=== PATIENT | male | born 1980 ===

== ENCOUNTER 2017-02-10 09:20 | Day surgery (SDC) | payer MEDICARE, MEDICAID ==
[2012-11-02 13:36] VITALS: BMI 24.2
[2017-02-10 10:18] LABS: BASO # 0.02 K/mm3 (0.0-2.0); BASO % 0.3 % (0.0-3.0); EOS % 0.6 % (1.5-5.0); GRAN # 4.14 (1.4-6.5); GRAN % 61.1 % (50.0-68.0); HEMATOCRIT 45.1 % (42.0-52.0); LYMPH # 2.1 (1.2-3.4); LYMPH % 31.1 % (22.0-35.0); MEAN CELL VOLUME 80.2 fl (80.0-105.0); MEAN CORPUSCULAR HEMOGLOBIN 26.9 pg (25.0-35.0); MEAN CORPUSCULAR HGB CONC 33.5 g/dl (31.0-37.0); MEAN PLATELET VOLUME 9.1 fl (7.0-11.0); MONO # 0.5 (0.1-0.6); MONO % 6.9 % (1.0-6.0); RED CELL DISTRIBUTION WIDTH 13.5 % (11.5-14.5); WHITE BLOOD COUNT 6.8 10^3/ul (4.5-11.0)
[2017-02-10 10:26] LABS: BLOOD UREA NITROGEN 14 mg/dL (7-21); CALCIUM 9.5 mg/dL (8.4-10.5); CARBON DIOXIDE 25 mmol/L (21-33); CHLORIDE 102 mmol/L (98-107); GFR AFRICAN-AMERICAN > 60; GLUCOSE,RANDOM 99 mg/dL (70-110); POTASSIUM 4.1 mmol/L (3.6-5.0); SODIUM 139 mmol/L (132-148)
[2017-02-10 10:33] VITALS: RESP 18; O2SAT 98
[2017-02-10 10:39] LABS: INR 1.15 (0.93-1.08); PARTIAL THROMBOPLASTIN TIME 33.1 Seconds (25.1-36.5)
[2017-02-10] MEDS ORDERED: Lidocaine 2% Inj (20ml) ONE (10:47)
[2017-02-10 12:47] VITALS: PULSE 64; TEMP 98.2
[2017-02-10 13:49] VITALS: BP 126/84
--- NOTE | 2017-02-10 19:45 | VASCULAR ---
PROCEDURE: Ultrasound and fluoroscopically placed left upper extremity PICC line. HISTORY: Amyotrophic lateral sclerosis. Needs IV access for treatment. Jeffery PICC line. PHYSICIAN(S): Bryant Yi MD. TECHNIQUE: The relative risks and indications of the procedure were explained to the patient and consent obtained. The patient was placed supine on the arteriogram table and the left arm prepped and draped in the usual sterile fashion. A tourniquet was applied to the left axilla. 1% Xylocaine was used to anesthetize the skin and soft tissues at the puncture site above the elbow. The left brachial vein was punctured under direct ultrasound guidance with a micropuncture set. A 0.018 guidewire was advanced centrally and used to measure the length to the SVC/RA junction. A 5 Ukrainian single-lumen PICC line 41 cm long was advanced to the SVC/RA junction. The catheter was flushed and secured. The patient tolerated the procedure well. IMPRESSION: 1. Ultrasound and fluoroscopically placed left upper extremity PICC line. A 5 [place] single-lumen PICC line 41 cm long was advanced to the SVC/RA junction.
== END 2017-02-10 13:40 | disposition home or self-care (01) ==
LOC: OPSURG 09:20
PROVIDERS: ATTEND Radiology Vascular & Interventional Radiology
DX: G12.21 Amyotrophic lateral sclerosis (principal)
CPT/HCPCS: 36415; 36569; 76937; 77001; 80048; 85025; 85610; 85730; C1751; J1644

== ENCOUNTER → 2017-04-08 | Day surgery (SDC) | payer MEDICARE, MEDICAID ==
[~2017-04-08] MED LIST: HEPARIN SODIUM/NS 1,000 ML IV ONE; Lidocaine 2% Inj (20ml) ONE
[2017-04-08 10:40] VITALS: PULSE 93; O2SAT 98
[2017-04-08 11:47] VITALS: BMI 25.0
[2017-04-08 12:07] VITALS: BP 127/89; RESP 18; TEMP 98.5
--- NOTE | 2017-04-08 14:41 | VASCULAR ---
PROCEDURE: Ultrasound and fluoroscopically placed right upper extremity PICC line. HISTORY: ALS. Needs PICC line for long-term infusion. PHYSICIAN(S): Bryant Yi MD. TECHNIQUE: The relative risks and indications of the procedure were explained to the patient and his and consent obtained. The patient was placed supine on the arteriogram table and the right arm prepped and draped in the usual sterile fashion. A tourniquet was applied to the right axilla. 1% Xylocaine was used to anesthetize the skin and soft tissues at the puncture site above the elbow. The right brachial vein was punctured under direct ultrasound guidance with a micropuncture set. A 0.018 guidewire was advanced centrally and used to measure the length to the SVC/RA junction. A 5 Bulgarian single-lumen PICC line 40 cm long was advanced to the SVC/RA junction. The catheter was flushed and secured. The patient tolerated the procedure well. IMPRESSION: 1. Ultrasound and fluoroscopically placed right upper extremity PICC line. A 5 Bulgarian single-lumen PICC line 40 cm long was advanced to the SVC/RA junction. 2. The patient's left upper extremity PICC line was removed
== END | disposition home or self-care (01) ==
LOC: OPSURG 10:09
PROVIDERS: ATTEND Radiology Vascular & Interventional Radiology
DX: G12.21 Amyotrophic lateral sclerosis (principal)

== ENCOUNTER 2017-06-10 09:57 | Day surgery (SDC) | payer MEDICARE, MEDICAID ==
[2017-06-09 08:34] VITALS: BMI 24.2
[2017-06-10] MEDS ORDERED: Midazolam 2 MG/2 ML VIAL ONE ×2 (10:02→14:18)
[2017-06-10] MEDS ORDERED: HEPARIN SODIUM/NS 1,000 ML IV ONE (10:02)
[2017-06-10] MEDS ORDERED: Lidocaine 2% Inj (20ml) ONE ×2 (10:02→14:13)
[2017-06-10 10:33] LABS: BASO # 0.03 K/mm3 (0.0-2.0); BASO % 0.5 % (0.0-3.0); EOS # 0.1 (0.0-0.7); EOS % 1.4 % (1.5-5.0); GRAN % 60.3 % (50.0-68.0); HEMOGLOBIN 15.2 g/dL (14.0-18.0); LYMPH % 29.5 % (22.0-35.0); MEAN CELL VOLUME 81.4 fl (80.0-105.0); MEAN CORPUSCULAR HEMOGLOBIN 26.9 pg (25.0-35.0); MEAN PLATELET VOLUME 9.1 fl (7.0-11.0); MONO # 0.6 (0.1-0.6); MONO % 8.3 % (1.0-6.0); RBC 5.66 10^6/uL (3.5-6.1); RED CELL DISTRIBUTION WIDTH 13.3 % (11.5-14.5); WHITE BLOOD COUNT 6.6 10^3/ul (4.5-11.0)
[2017-06-10 10:35] VITALS: TEMP 98.2
[2017-06-10 10:43] LABS: BLOOD UREA NITROGEN 9 mg/dL (7-21); GFR AFRICAN-AMERICAN > 60; GFR NON-AFRICAN AMERICAN > 60
[2017-06-10 10:59] LABS: INR 1.1 (0.93-1.08); PARTIAL THROMBOPLASTIN TIME 33.8 Seconds (25.1-36.5); PROTHROMBIN TIME 12.7 SECONDS (9.4-12.5)
[2017-06-10] MEDS ORDERED: Oxycodone/Acetaminophen 5/325 mg Tab PO PRN (15:08)
[2017-06-10] MEDS ORDERED: Sodium Chloride 0.45% 1,000 ML IV SCH (15:15)
[2017-06-10 15:52] VITALS: BP 132/74; PULSE 90; RESP 18; O2SAT 96
--- NOTE | 2017-06-13 14:33 | VASCULAR ---
PROCEDURE: Ultrasound and fluoroscopic l right internal jugular venous access port. CLINICAL HISTORY: Amyotrophic lateral sclerosis.Venous port for chronic infusion therapy. PHYSICIAN(S): Bryant Yi M.D. TECHNIQUE: The relative risks and indications of the procedure were explained to the patient and consent obtained. The patient was placed supine on the arteriogram table and the right neck and chest prepped and draped in the usual sterile fashion. Conscious sedation monitoring was provided throughout the procedure by a nurse. Antibiotics were given prior to the procedure. Under direct ultrasound guidance, the right internal jugular vein was punctured with a micro-puncture set. A 0.035 angled Glidewire was advanced into the IVC. A 4 cm incision was made below the right clavicle and the pocket blunted dissected. A 8 [place]ym[place] single-lumen catheter, 19 cm long, was advanced to the SVC/RA junction. The catheter was trimmed and attached to the port. The port aspirates and injects easily. The port was placed in the pocket and closed in 2 layers. The patient tolerated the procedure well. IMPRESSION: Ultrasound and fluoroscopically placed right internal jugular venous access port.
== END 2017-06-10 16:39 | disposition home or self-care (01) ==
LOC: SDSVAS 09:57
PROVIDERS: ATTEND Radiology Vascular & Interventional Radiology
DX: Z45.2 Encounter for adjustment and management of vascular access device (principal); G12.21 Amyotrophic lateral sclerosis
CPT/HCPCS: 36415; 36561; 76937; 77001; 80048; 85025; 85610; 85730; 99152; 99153; C1769; C1788; J0690; J1644; J2250; J2405; J3010; J7030 ×2